=== PATIENT | male | born 1965 | race Caucasian/White ===

== ENCOUNTER 2018-02-19 14:55 | Inpatient (IN) | payer OTHER ==
[~2018-02-19] VITALS: Ht 193 cm; Wt 105.2 kg
[~2018-02-19 14:55] MED LIST: Z.0.AMARYL2 MG PO; Z.0.ASPIRIN CHEW81 M PO; Z.0.PLAVIX75 MG PO; Z.0.PRINIVIL5 MG PO; Z.0.TOPROL XL50 MG PO; Z.3.HYDROCODON-ACE1 PO
--- OUTSIDE RECORDS SUMMARY | 2018-02-19 14:58 | XMS REPORT | Clinical Summary ---
Author Author [facility] Organization [facility] Address Unknown Phone Unavailable Care Team Providers Care Small Products I Assembler Name Role Phone Lesli Gary MD PCP Allergies Comments Active Allergy Reactions Severity Noted Date Morphine 04/18/2016 Medications End Date Status Medication Sig Dispensed Refills Start Date Active ezetimibe (ZETIA) 10 mg 0 tablet 7 Active clopidogrel (PLAVIX) 75 0 mg tablet 7 Active FARXIGA 5 mg tablet Take 5 mg by 1 mouth once 6 daily. Active glimepiride (AMARYL) 4 MG TAKE 1 TABLET 0 tablet BY MOUTH IN 6 THE MORNING AND 1/2 TABLET BY MOUTH IN THE EVENING Active HYDROcodone-acetaminophen Take 1 tablet 0 (NORCO) 7.5-325 mg per by mouth 6 tablet every 8 (eight) hours as needed. Active lisinopril Take 5 mg by 1 (PRINIVIL,ZESTRIL) 5 mg mouth once 6 tablet daily. Active metFORMIN (GLUCOPHAGE) Take 850 mg 1 850 mg tablet by mouth 3 6 (three) times a day. Active metoprolol tartrate Take 50 mg by 1 (LOPRESSOR) 50 mg tablet mouth once 6 daily. Active LYRICA 75 mg capsule Take 75 mg by 0 mouth 3 6 (three) times a day. Active rOPINIRole (REQUIP) 2 MG Take 2 mg by 0 tablet mouth 6 nightly. Active JANUVIA 100 mg tablet Take 100 mg 1 by mouth once 6 daily. Active CHANTIX CONTINUING MONTH TAKE 0 BOX 1 mg tablet DIRECTED PER 6 PACKAGE INSTRUCTIONS. Active pravastatin (PRAVACHOL) 0 40 MG tablet 7 Active metoprolol succinate XL Take 50 mg by 0 (TOPROL-XL) 50 mg 24 hr mouth once 7 tablet daily. Active Problems Problem Noted Date Infected superficial foreign body of right leg 11/27/2016 Overview: Added automatically from request for surgery [id number] Social History Date Tobacco Use Types Packs/Day Years Used Former Smoker Alcohol Use Drinks/Week oz/Week Comments Yes occ Sex Assigned at Date Recorded Not on file Industry Job Start Date Occupation Not on file Not on file Not on file Travel End Travel History Travel Start No recent travel history available. Last Filed Vital Signs Not on file Plan of Treatment Health Maintenance Due Date Last Done Comments MMR VACCINES (1 of - 1966 Standard series) VARICELLA VACCINES (1 of 1978 2 - 2-dose adolescent series) COLON CANCER SCREENING 2015 SHINGRIX VACCINE (1 of 2) 2015 INFLUENZA VACCINE 10/23/2017 HEPATITIS B VACCINES Aged Out No longer eligible based on patient's age to complete this topic IPV VACCINES Aged Out No longer eligible based on patient's age to complete this topic MENINGOCOCCAL VACCINE Aged Out No longer eligible based on patient's age to complete this topic Results Not on fileafter 02/18/2017 Insurance Payer Benefit Subscriber ID Type Phone Address Plan / Group AETNA AETNA PPO xxxxxxxxxx PPO OPEN CHOICE Advance Directives Patient has advance care planning documents on file. For more information, lydia sanchez contact: Derik Serrano [address] [place] [address]
[2018-02-19] MEDS ORDERED: FENTANYL CITRATE/PF 100MCG/2 ML INJ IV ONE ×3 (15:15→19:30)
--- NOTE | 2018-02-19 16:01 | Diagnostic Imaging Report ---
Foot complete CPT code: 62369 Indication: Wound to bottom of foot Technique: A.P., oblique and lateral views of the right foot obtained. Comparison: None Findings: The foot has been amputated at the level of the metatarsals. There is air at the plantar surface of the foot at the osteotomy site. There is demineralization of the remaining aspects of the fourth and fifth metatarsals. Midfoot appears intact without focal osseous lesion. Calcaneus is intact with a small posterior spur. Visualized portions of the tibia are intact. There is hypertrophy of the medial malleolus, possibly due to remote injury or altered biomechanics. The distal fibula is intact. IMPRESSION: The mineralization of the proximal fourth and fifth metatarsals at the osteotomy site. This is concerning for osteomyelitis. Bone scan and MRI are more sensitive modalities to detect osteomyelitis. Signed by: Dr. Iris Reese MD on 02/19/2018 3:58 PM
[2018-02-19 16:15] LABS: BASOPHILS # (AUTO) 0.1 (0.0-0.1); BASOPHILS % 0.4 % (0.0-1.0); EOSINOPHILS # (AUTO) 0.3 (0.0-0.4); EOSINOPHILS % 2.3 % (0.0-6.0); HEMATOCRIT 41.6 % (38.2-49.6); HEMOGLOBIN 13.7 g/dL (14.0-18.0); LYMPHOCYTES # (AUTO) 2.3 (1.0-3.2); LYMPHOCYTES % 20.3 % (18.0-39.1); MEAN CORPUSCULAR HEMOGLOBIN 28.6 pg (28-32); MEAN CORPUSCULAR HGB CONC 32.9 g/dL (31-35); MEAN CORPUSCULAR VOLUME 86.8 fL (81-99); MONOCYTES # (AUTO) 0.8 (0.2-0.8); MONOCYTES % 6.6 % (4.4-11.3); PLATELET COUNT 363 x10e3/uL (140-360); RED BLOOD COUNT 4.79 x10e6/uL (4.3-5.7); RED CELL DISTRIBUTION WIDTH 14.1 % (11.7-14.4)
[2018-02-19 16:24] LABS: INR 0.84; PROTHROMBIN TIME 12.3 seconds (11.9-14.5)
[2018-02-19 16:25] LABS: PARTIAL THROMBOPLASTIN TIME 31.9 seconds (23.8-35.5)
[2018-02-19 16:36] LABS: ALANINE AMINOTRANSFERASE 24 IU/L (0-55); ALBUMIN 3.2 g/dL (3.5-5.0); ALBUMIN/GLOBULIN RATIO 0.7 (0.8-2.0); ALKALINE PHOSPHATASE 111 IU/L (40-150); ANION GAP 12.9 mmol/L (8-16); BLOOD UREA NITROGEN 6 mg/dL (7-26); BUN/CREATININE RATIO 6 (6-25); CARBON DIOXIDE 27 mmol/L (22-29); CHLORIDE 99 mmol/L (98-107); CREATININE, SERUM 1.08 mg/dL (0.72-1.25); EST GLOMERULAR FILTRATION RATE > 60 ML/MIN (60-); GLUCOSE 253 mg/dL (74-118); MAGNESIUM 1.8 MG/DL (1.3-2.1); POTASSIUM 3.9 mmol/L (3.5-5.1); SODIUM 135 mmol/L (136-145)
[2018-02-19] MEDS ORDERED: FENTANYL CITRATE/PF 100MCG/2 ML INJ ONE (18:40)
--- OUTSIDE RECORDS SUMMARY | 2018-02-19 19:45 | XMS REPORT | Clinical Summary ---
Author Author [facility] Organization [facility] Address Unknown Phone Unavailable Care Team Providers Care Metal Sprayer Protective Coating Name Role Phone Lesli Gary MD PCP [...] Overview: Added automatically from request for surgery [id number] Social History Date Tobacco Use Types Packs/Day [...] more information, lydia sanchez contact: Derik Serrano [address] [place] [address]
--- OUTSIDE RECORDS SUMMARY | 2018-02-19 19:45 | XMS REPORT ---
[facility] Address Unknown Phone Unavailable Care Team Providers Care Plan Nurse Name Role Phone Mike SANCHEZ Unavailable Unavailable Problems This patient has no known problems. Allergies, Adverse Reactions, Alerts This patient has no known allergies or adverse reactions. Medications This patient has no known medications. Results Test Description Test Time Test Comments Text Results Atomic Results Result Comments FOOT RIGHT COMPLETE 2018-02-19 15:55:00 [facility] [address] [address] Patient Name: TONO HOBBS MR #: [id number] : 1965 Age/Sex: 53/M Req #: [id number] [facility] Physician: Ordered by: FAITH PANDYA IVORY CARVER Report #: [id number] Location: ER Room/Bed: Procedure: [id number] DX/FOOT RIGHT COMPLETE Exam Date: 02/19/18 Exam Time: 1540 REPORT STATUS: Signed Foot complete CPT code: 93429 Indication: Wou nd to bottom of foot Technique: A.P., oblique and lateral views of the right foot obtained. Comparison: None Findings: The foot has been amputated at the level of the metatarsals. There is air at the plantar surface of the foot at the osteotomy site. There is demineralization of the remaining aspects of the fourth and fifth metatarsals. Midfoot appears intact without focal osseous lesion. Calcaneus is intact with a small posterior spur. Visualized portions of the tibia are intact. There is hypertrophy of the medial malleolus, possibly due to remote injury or altered biomechanics. The distal fibula is intact. IMPRESSION: The mineralization of the proximal fourth and fifth metatarsals at the osteotomy site. This is concerning for osteomyelitis. Bone scan and MRI are more sensitive modalities to detect osteomyelitis. Signed by: Dr. Elias Reese MD on 02/19/2018 3:58 PM Dictated By: ELIAS REESE MD [id number] Transcribed By: CARINA on 02/19/18 7111 COPY TO: FAITH PANDYA NP
[2018-02-19] MEDS ORDERED: ROPINIROLE HCL2 MG PO (20:20)
[2018-02-19] MEDS ORDERED: METFORMIN HCL850 MG PO (20:20)
[2018-02-19] MEDS ORDERED: GABAPENTIN300 MG PO (20:20)
[2018-02-19] MEDS ORDERED: GLIMEPIRIDE2 MG PO (20:20)
[2018-02-19] MEDS ORDERED: PRAVASTATIN SOD40 MG PO (20:20)
[2018-02-19] MEDS: VANCOMYCIN 1GM/NS 250 ML 250 ML IV SCH (21:18)
[2018-02-19] MEDS ORDERED: DEXTROSE 50% SYRINGE 50 ML IV PRN (21:30)
[2018-02-19] MEDS ORDERED: IBUPROFEN 600 MG TAB PO PRN (23:15)
[2018-02-19] MEDS ORDERED: FENTANYL CITRATE/PF 100MCG/2 ML INJ IV PRN (23:15)
[2018-02-20] VITALS (8 sets, daily range): BP systolic 108–143; BP diastolic 60–79
[2018-02-20] MEDS ORDERED: HYDROMORPHONE 2MG/ML 2 MG/ML ML IV PRN ×2 (00:45→07:45)
[2018-02-20] MEDS ORDERED: HYDROMORPHONE 1MG/1ML INJ IV PRN (07:15)
[2018-02-20] MEDS ORDERED: ACETAMINOPHEN 325 MG TAB PO PRN (07:15)
[2018-02-20] MEDS ORDERED: HYDRALAZINE HCL 20 MG/ML VIAL IV PRN (07:15)
[2018-02-20] MEDS ORDERED: DEXTROSE 50% SYRINGE 50 ML IV PRN (07:15)
[2018-02-20] MEDS ORDERED: ONDANSETRON HCL INJ 2 MG/ML VIAL IV PRN (07:15)
[2018-02-20] MEDS ORDERED: INSULIN REGULAR, HUMAN 100 UNIT/1 ML 3ML VIAL SQ SCH (07:30)
[2018-02-20] MEDS: FAMOTIDINE 20 MG TAB PO SCH ×2 (08:30→16:00)
[2018-02-20] MEDS: LISINOPRIL 2.5 MG TAB PO SCH (08:30)
[2018-02-20] MEDS: METOPROLOL SUCCINATE 50 MG TAB XL PO SCH (08:30)
[2018-02-20] MEDS: CLOPIDOGREL BISULFATE 75 MG TAB PO SCH (08:30)
[2018-02-20] MEDS: GABAPENTIN 300 MG CAP PO SCH ×3 (08:30→22:05)
[2018-02-20] MEDS: PIPER-TAZ 3.375 GM 50 ML IV SCH ×3 (08:50→23:00)
[2018-02-20] MEDS: INSULIN LISPRO 100 UNIT/1 ML 3ML VIAL SQ SCH ×4 (08:50→21:00)
[2018-02-20] MEDS ORDERED: NON-FORMULARY MEDICATION (Pravastatin Sodium 40 MG) PO SCH (09:00)
[2018-02-20] MEDS ORDERED: VANCOMYCIN 1GM/NS 250 ML 250 ML IV SCH (09:00)
[2018-02-20] MEDS ORDERED: LISINOPRIL 5 MG PO SCH (09:00)
[2018-02-20] MEDS ORDERED: SODIUM CHLORIDE 0.9% 250ML 250 ML ONE (09:13)
[2018-02-20] MEDS: VANCOMYCIN 1GM/NS 250 ML 250 ML IV SCH ×2 (10:02→22:05)
[2018-02-20] MEDS: HYDROCODONE/APAP 5MG-325MG TAB PO PRN (11:50)
--- NOTE | 2018-02-20 12:48 | Consultation ---
DATE OF CONSULTATION: February 20, 2018 REASON FOR CONSULTATION: Right foot wound cellulitis. HISTORY OF PRESENT ILLNESS: This is a 53-year-old male with past medical history of type-2 diabetes with peripheral neuropathy and high blood pressure, who was admitted yesterday for worsening infection to his right foot. Per the patient, he has a history of a partial 1st ray amputation in 2011 followed by transmetatarsal amputation and revisional transmetatarsal amputation in 2013, which was performed by a different physician at [facility]. The patient also relates to having a stenting procedure done in 2011 followed by another stenting procedure done in [place], which was approximately 2 years ago, to his right lower extremity. The patient relates that he was being seen by a corrections lieutenant in [place] where periodic debridements and wound grafts were being performed. The patient then relates he lost insurance over the past year before it was reobtained. He relates an ulcer formed on the plantar aspect of his right foot stump site approximately 3 months ago, but he has not been to a physician to treat it. He has been trying to change the bandages at home with Betadine dressing changes. He has not been taking any antibiotics. Currently he denies nausea, vomiting, fever, chills, chest pain or shortness of breath. PAST MEDICAL HISTORY 1. Type-2 diabetes. 2. Peripheral neuropathy. 3. Hypertension. MEDICATIONS: Per the chart. ALLERGIES: MORPHINE. SURGICAL HISTORY: As mentioned above, partial 1st ray amputation in 2011, transmetatarsal amputation in 2013, multiple stenting procedures to the right lower extremity in 2011 and again in 2015. SOCIAL HISTORY: Patient denies drinking or illicit drug use. Has a history of smoking. REVIEW OF SYSTEMS: The patient currently denies nausea, vomiting, fever, chills, chest pain or shortness of breath. PHYSICAL EXAMINATION GENERAL: Alert and oriented times 3, in no apparent distress. VITAL SIGNS: Today, temperature 97.1, heart rate 56, respiratory rate 19, blood pressure 111/68, pulse ox 98% on room air. PROBLEM-FOCUSED LOWER EXTREMITY PHYSICAL EXAMINATION VASCULAR: Dorsalis pedis pulse is faintly palpable. Posterior tibial pulse is nonpalpable. Capillary refill time is 4 to 5 seconds to the stump site. Periwound erythema, edema and warmth are noted to the level of the ankle joint. NEUROLOGIC: Sensation is absent to light touch bilaterally. MUSCULOSKELETAL: Right transmetatarsal amputation. Left 4th digit amputation. DERMATOLOGICAL: A large chronic ulceration is noted to the plantar aspect of the patient's right foot, which is approximately 5 cm x 6 cm. The wound edges are macerated with severe hyperkeratosis noted to the periwound and to the distal amputation site. Mild serous drainage is present. The wound does probe to deep tissue. LABS: White blood cell count is 11.4, hemoglobin 13.7, hematocrit 41.6, platelet count 363. Sodium 135, potassium 3.9, chloride 99, CO2 27, BUN 6, creatinine 1.08, glucose 235. IMAGING: Demineralization of the proximal 4th and 5th metatarsal stumps concerning for osteomyelitis. MRI is recommended. ASSESSMENT 1. Type-2 diabetes and peripheral neuropathy. 2. Right foot ulcer and cellulitis, status post transmetatarsal amputation. PLAN: The patient was seen and evaluated. Discussed condition, x-rays and treatment options with the patient in detail. The patient has a long history of multiple amputations to the right foot performed by different physicians at different facilities over the last 6 years. At this time, the patient has a wound that has been present for over 3 months with no medical treatment. The suspicion for osteomyelitis is high. Will recommend MRI for further evaluation of the osteomyelitis and the extent of it. Since the patient has had multiple stenting procedures to the right lower extremity, will also order arterial Dopplers to evaluate circulation. I discussed with the patient that if osteomyelitis is present options would include IV antibiotics, wound care, and possible revisional angioplasty versus a below-knee amputation. The patient understands. The wound was redressed with Betadine wet to dry with 4 x 4's, Kerlix and tape. The podiatry service will continue to monitor as an inpatient. CARSON VANN DPM Job#: [id number]
--- NOTE | 2018-02-20 13:30 | Diagnostic Imaging Report ---
MRI of the right forefoot without contrast. History: Osteomyelitis. Sore on the lateral foot. Redness and swelling. Decreased range of motion. Cellulitis. Technique: Multiplanar multisequence MRI of the foot without contrast Comparison: Radiographs 02/19/2018 Findings: There is abnormal bone marrow replacement with bone marrow edema and cortical destruction involving the remainder of the second through fifth metatarsal bones. This is worrisome for osteomyelitis. The remainder of the first metatarsal bone is relatively preserved. Additionally, there is abnormal bone marrow edema with marrow replacement involving the cuneiform bones, navicular bone, cuboid bone and anterior calcaneus. This may be stress related. There is skin thickening/ulceration and abnormal soft tissue edema with air foci at the distal soft tissue stump. No well-formed drainable fluid collection/abscess is seen. There is a small tibiotalar joint effusion. Impression: Findings worrisome for osteomyelitis involving the remainder of the second through fifth metatarsal bones. Abnormal bone marrow edema and marrow replacement involving the cuneiform bones, navicular bone, cuboid bone and anterior calcaneus may be stress related. Findings consistent with cellulitis, skin ulceration and air foci at the distal soft tissue stump. No well-formed drainable fluid collection is seen. Signed by: Dr. Dany Taylor M.D. on 02/20/2018 1:27 PM
--- NOTE | 2018-02-20 15:55 | Consultation ---
DATE OF CONSULTATION: February 20, 2018 REASON FOR CONSULTATION: Nonhealing foot ulcer. This patient is known to me from previous. I took care of him about 9 months ago. He had osteomyelitis. He is presenting with right foot wound, which he had for a couple of months. Not getting any better with drainage. The patient had transmetatarsal amputation. He does have an underlying history of diabetes mellitus and severe neuropathy. He also has high blood pressure. The patient comes in with drainage from his foot. He does see Dr. Singh as an outpatient. The patient is being admitted. Infectious disease was consulted. He is currently lying in bed complaining of pain in his feet. PAST MEDICAL HISTORY: Diabetes mellitus, neuropathy, hypertension. PAST SURGICAL HISTORY: TMA on the right, partial 1st ray amputation in 2011, transmetatarsal amputation in 2013, multiple stenting procedures in the right lower extremity in 2011 and 2015. SOCIAL HISTORY: There is no smoking, drug abuse or alcohol abuse. FAMILY HISTORY: He has a history of smoking but he quit. REVIEW OF SYSTEMS HEENT: There is no headache, visual change, hearing changes. GI: There is no nausea. No vomiting. No diarrhea. CARDIAC: There is no arrhythmia. NEURO: No seizure activity. All other symptoms are limited except for the pain. LABS: White count is 11.49, hemoglobin 13.7. Sodium 135, potassium 3.9, creatinine 1.08. An MRI of the foot was done, which showed concerning for osteomyelitis of the 2nd through the 5th metatarsal bone. PHYSICAL EXAMINATION GENERAL: He is currently alert and oriented. Does not seem to be in acute distress. VITALS: Stable. Currently afebrile. HEENT: Normocephalic. Not icteric. NECK: Supple. CHEST: Clear. HEART: S1 and S2. ABDOMEN: Soft. Bowel sounds present. No tenderness. EXTREMITIES: No edema. He does have an open wound and ulcer. The patient had an open wound and ulcer on the distal aspect of his stump. IMPRESSION 1. Osteomyelitis of his right foot in a patient with diabetes mellitus, neuropathy, peripheral vascular disease, status post stent. Agree with vancomycin. Will get a PICC line. Will get a sed rate and C-reactive protein. Will discuss with podiatry. 2. Neuropathy. 3. Diabetes mellitus. 4. Hypertension. Will follow with you. Job#: [id number] RI
[2018-02-20] MEDS ORDERED: PRAVASTATIN 20 MG TAB PO SCH (21:00)
[2018-02-20] MEDS: ROPINIROLE HCL 2 MG TAB PO SCH (22:05)
[2018-02-20] MEDS: HYDROMORPHONE 2MG/ML 2 MG/ML ML IV PRN (22:06)
[2018-02-21] VITALS (7 sets, daily range): BP systolic 115–132; BP diastolic 68–77
[2018-02-21] MEDS: HYDROCODONE/APAP 5MG-325MG TAB PO PRN ×3 (00:25→16:20)
[2018-02-21] MEDS: HYDROMORPHONE 2MG/ML 2 MG/ML ML IV PRN ×6 (02:05→22:10)
[2018-02-21 04:26] LABS: BASOPHILS # (AUTO) 0.1 (0.0-0.1); BASOPHILS % 0.6 % (0.0-1.0); EOSINOPHILS # (AUTO) 0.4 (0.0-0.4); EOSINOPHILS % 4.7 % (0.0-6.0); HEMATOCRIT 37.8 % (38.2-49.6); HEMOGLOBIN 12.3 g/dL (14.0-18.0); LYMPHOCYTES # (AUTO) 1.8 (1.0-3.2); LYMPHOCYTES % 21.5 % (18.0-39.1); MEAN CORPUSCULAR HEMOGLOBIN 28.5 pg (28-32); MEAN CORPUSCULAR HGB CONC 32.5 g/dL (31-35); MEAN CORPUSCULAR VOLUME 87.7 fL (81-99); MONOCYTES # (AUTO) 0.9 (0.2-0.8); MONOCYTES % 10.5 % (4.4-11.3); NEUTROPHILS # (AUTO) 5.1 (2.1-6.9); NEUTROPHILS % 62.3 % (38.7-80.0); PLATELET COUNT 250 x10e3/uL (140-360); RED BLOOD COUNT 4.31 x10e6/uL (4.3-5.7); RED CELL DISTRIBUTION WIDTH 14.1 % (11.7-14.4)
[2018-02-21 04:45] LABS: ANION GAP 12.4 mmol/L (8-16); BLOOD UREA NITROGEN 11 mg/dL (7-26); BUN/CREATININE RATIO 11 (6-25); CALCIUM 9.1 mg/dL (8.4-10.2); CARBON DIOXIDE 26 mmol/L (22-29); CHLORIDE 104 mmol/L (98-107); EST GLOMERULAR FILTRATION RATE > 60 ML/MIN (60-); GLUCOSE 236 mg/dL (74-118); MAGNESIUM 2.2 MG/DL (1.3-2.1); POTASSIUM 4.4 mmol/L (3.5-5.1); SODIUM 138 mmol/L (136-145)
[2018-02-21] MEDS: PIPER-TAZ 3.375 GM 50 ML IV SCH ×3 (06:15→22:40)
[2018-02-21] MEDS: INSULIN LISPRO 100 UNIT/1 ML 3ML VIAL SQ SCH ×4 (07:30→21:00)
[2018-02-21] MEDS: VANCOMYCIN 1GM/NS 250 ML 250 ML IV SCH ×2 (08:46→21:10)
[2018-02-21] MEDS: METOPROLOL SUCCINATE 50 MG TAB XL PO SCH (08:46)
[2018-02-21] MEDS: LISINOPRIL 2.5 MG TAB PO SCH (08:46)
[2018-02-21] MEDS: FAMOTIDINE 20 MG TAB PO SCH ×2 (08:46→16:39)
[2018-02-21] MEDS: GABAPENTIN 300 MG CAP PO SCH ×3 (08:46→21:10)
[2018-02-21] MEDS: CLOPIDOGREL BISULFATE 75 MG TAB PO SCH (08:47)
--- NOTE | 2018-02-21 09:19 | Operative Report ---
Documentation in error Job#: [id number] MONICA DOE
--- NOTE | 2018-02-21 09:50 | Progress Note ---
DATE: February 21, 2018 SUBJECTIVE: This is a 53-year-old male with a past medical history of type 2 diabetes, peripheral neuropathy and hypertension, who was admitted 2 days ago for worsening infection in his right foot. No acute issues overnight. Patient currently relates to moderate pain to the patient's right foot. Denies nausea, vomiting, fever, chills, chest pain, or shortness of breath. OBJECTIVE VITAL SIGNS: Today, temperature 97, heart rate 59, respiratory rate 19, blood pressure 132/77, pulse ox is 96% on room air. LOWER EXTREMITY PHYSICAL EXAMINATION VASCULAR: Dorsalis pedis is faintly palpable. Posterior pulses are nonpalpable. Capillary refill time is 4-5 seconds to the distal stump site. There is periwound erythema, edema which is improved since yesterday. Erythema extending just to the periphery of the ulceration. NEUROLOGICAL: Sensation is absent to light touch bilateral. MUSCULOSKELETAL: Right transmetatarsal amputation, left 4th digit amputation. DERMATOLOGICAL: Chronic ulceration to the plantar aspect of the patient's right foot approximately 5 x 6 cm. Wound edges are macerated with hyperkeratotic tissue noted to the distal amputation site. The wound is slightly macerated with serous drainage. Periwound erythema has improved since yesterday. LABS: White blood cell count is 8.13, hemoglobin 12.3, hematocrit 37.8, and platelet count is 250,000. Sodium 130, potassium 4.4, chloride 104, CO2 26, BUN 11, creatinine 1, glucose 236. Hemoglobin A1c is 6.9. IMAGING: MRI of right foot findings worrisome for osteomyelitis involving the remainder of the 2nd through 5th metatarsal bones. Abnormal marrow edema with marrow replacement involving cuneiform bones, navicular cuboid and anterior calcaneus. Findings consistent with cellulitis and ulceration distal to the tissue stump site. No well-formed abscess is present. Arterial Dopplers are pending. ASSESSMENT 1. Type 2 diabetes with peripheral neuropathy. 2. Right foot ulceration with cellulitis. 3. Osteomyelitis, right foot. PLAN: The patient was seen and evaluated. Explained his condition, MRI and treatment options with the patient in detail. I discussed with the patient that the patient likely has osteomyelitis in the remaining stump of the metatarsals 2-5, and possible osteomyelitis in the bone proximal to that, including the cuneiform navicular, and cuboid. I discussed with the patient that further amputation of his foot would leave him with a nonambulatory leg, and there would be no flap for closure due to the large ulceration. Discussed with the patient at this time his option would include a below knee amputation versus again long-term wound care with IV antibiotics, periodic debridements and possible skin grafting. Patient relates that he has been through IV antibiotics and skin grafting over the last several years, and would like to think about an amputation versus continued wound care. The podiatry service will continue to monitor as an inpatient. Job#: [id number] MONICA
--- NOTE | 2018-02-21 15:49 | Consultation ---
DATE OF CONSULTATION: CARDIOLOGY CONSULTATION REASON FOR CONSULTATION: Peripheral arterial disease. HISTORY OF PRESENT ILLNESS: This is a 53-year-old man with a past history of diabetes mellitus, neuropathy, hypertension, severe peripheral arterial disease status post lower extremity bypass and possible peripheral intervention subsequent to this in [place]. The patient was admitted to our facility with osteomyelitis. He underwent wound care. MRI found significant findings for osteomyelitis. Options are being discussed for possible below-knee amputation versus long-term wound care and IV antibiotics. We have been asked to evaluate the patient for his vascular status. Arterial ultrasound has been ordered, and we will review this once this has been resulted. He, otherwise, is feeling well. He denies any chest pain, shortness of breath, palpitations or near syncope. REVIEW OF SYSTEMS: A 12-point review of systems was conducted and was negative other than that mentioned above in the HPI. PAST MEDICAL HISTORY: Hypertension, diabetes mellitus, hyperlipidemia, peripheral arterial disease status post bypass. PAST SURGICAL HISTORY: Multiple orthopedic and podiatry procedures, peripheral interventions, peripheral bypass. FAMILY HISTORY: No premature coronary artery disease or sudden cardiac . SOCIAL HISTORY: Prior tobacco use. No current illicit drug use or tobacco use. ALLERGIES: MORPHINE. MEDICATIONS: See medication reconciliation form. PHYSICAL EXAMINATION VITAL SIGNS: Temperature 96.5, heart rate 58, respirations 19, blood pressure 126/74, oxygen saturation 97% on room air. GENERAL: Well-appearing, in no apparent distress. LUNGS: Clear to auscultation. ABDOMEN: Soft, nontender and nondistended. CARDIOVASCULAR: Regular rate and rhythm. EXTREMITIES: Venous stasis changes noted over bilateral lower extremities. Right foot wound, which is dressed. MRI shows findings worrisome for osteomyelitis involving the 2nd through 5th metatarsal bones. IMPRESSION 1. Peripheral arterial disease status post multiple interventions and peripheral bypass surgery. 2. Diabetes mellitus. 3. Hyperlipidemia. 4. Hypertension. 5. Osteomyelitis. RECOMMENDATIONS: Arterial Doppler has been ordered, and we will review this once it has been resulted. May consider CT angiography given his prior history of bypass to evaluate the graft itself if arterial Doppler is inadequate. The patient may require peripheral intervention, and we will continue to follow. Otherwise, continue current medication regimen consisting of Plavix and statins. Job#: [id number]
[2018-02-21] MEDS: SIMVASTATIN 20 MG TAB PO SCH (21:10)
[2018-02-21] MEDS: ROPINIROLE HCL 2 MG TAB PO SCH (21:10)
[2018-02-22] MEDS: HYDROMORPHONE 2MG/ML 2 MG/ML ML IV PRN ×6 (02:16→22:20)
[2018-02-22 04:00] VITALS: BP 129/68
[2018-02-22 04:09] LABS: BASOPHILS # (AUTO) 0.1 (0.0-0.1); BASOPHILS % 0.6 % (0.0-1.0); EOSINOPHILS # (AUTO) 0.4 (0.0-0.4); EOSINOPHILS % 3.6 % (0.0-6.0); HEMOGLOBIN 13.5 g/dL (14.0-18.0); LYMPHOCYTES # (AUTO) 1.9 (1.0-3.2); LYMPHOCYTES % 19.5 % (18.0-39.1); MEAN CORPUSCULAR HEMOGLOBIN 28.7 pg (28-32); MEAN CORPUSCULAR HGB CONC 32.9 g/dL (31-35); MONOCYTES # (AUTO) 0.8 (0.2-0.8); MONOCYTES % 7.7 % (4.4-11.3); NEUTROPHILS # (AUTO) 6.6 (2.1-6.9); NEUTROPHILS % 68.1 % (38.7-80.0); PLATELET COUNT 256 x10e3/uL (140-360); RED BLOOD COUNT 4.71 x10e6/uL (4.3-5.7)
[2018-02-22 04:33] LABS: ANION GAP 12.4 mmol/L (8-16); BLOOD UREA NITROGEN 13 mg/dL (7-26); BUN/CREATININE RATIO 13 (6-25); CALCIUM 9.6 mg/dL (8.4-10.2); CARBON DIOXIDE 26 mmol/L (22-29); CHLORIDE 104 mmol/L (98-107); CREATININE, SERUM 1.03 mg/dL (0.72-1.25); EST GLOMERULAR FILTRATION RATE > 60 ML/MIN (60-); GLUCOSE 196 mg/dL (74-118); MAGNESIUM 2.3 MG/DL (1.3-2.1); POTASSIUM 4.4 mmol/L (3.5-5.1); SODIUM 138 mmol/L (136-145)
[2018-02-22] MEDS: PIPER-TAZ 3.375 GM 50 ML IV SCH ×3 (06:19→22:19)
[2018-02-22 07:15] VITALS: BP 144/83
[2018-02-22] MEDS: INSULIN LISPRO 100 UNIT/1 ML 3ML VIAL SQ SCH ×4 (07:30→21:27)
[2018-02-22 07:43] VITALS: BP 144/83
[2018-02-22] MEDS: FAMOTIDINE 20 MG TAB PO SCH ×2 (09:05→16:20)
[2018-02-22] MEDS: MULTIVITAMINS/MINERALS TAB PO SCH (09:05)
[2018-02-22] MEDS: GABAPENTIN 300 MG CAP PO SCH ×3 (09:05→21:27)
[2018-02-22] MEDS: VANCOMYCIN 1GM/NS 250 ML 250 ML IV SCH (09:05)
[2018-02-22] MEDS: LISINOPRIL 2.5 MG TAB PO SCH (09:06)
[2018-02-22] MEDS: CLOPIDOGREL BISULFATE 75 MG TAB PO SCH (09:06)
[2018-02-22] MEDS: METOPROLOL SUCCINATE 50 MG TAB XL PO SCH (09:06)
[2018-02-22] MEDS: ZINC SULFATE 220 MG CAP PO SCH (09:09)
[2018-02-22] MEDS: ASCORBIC ACID 500 MG TAB PO SCH ×2 (09:09→16:20)
[2018-02-22] MEDS: OYST-CAL-D 500MG TABLET PO SCH ×2 (09:09→16:20)
[2018-02-22 11:48] VITALS: BP 112/87
[2018-02-22 16:06] VITALS: BP 119/78
[2018-02-22] MEDS: CEFAZOLIN SOD 1 GM/D5W 50ML 50 ML IV SCH ×2 (16:20→21:27)
[2018-02-22] MEDS: HYDROCODONE/APAP 5MG-325MG TAB PO PRN (16:40)
--- NOTE | 2018-02-22 17:49 | Progress Note ---
DATE: CARDIOLOGY PROGRESS NOTE SUBJECTIVE: Patient reports right lower extremity resting pain. OBJECTIVE VITAL SIGNS: Temperature is 98, heart rate 64, respiratory rate is 18, blood pressure is 119/78, oxygen saturation 99% on room air. GENERAL: He is well-appearing, well-built, in no apparent distress. CARDIOVASCULAR: Regular rate and rhythm. LUNGS: Clear to auscultation. ABDOMEN: Soft, nontender. EXTREMITIES: Right lower extremity wound dressed. LABORATORY DATA: Reviewed, showed hemoglobin of 13.5, creatinine of 1.03. Arterial Doppler showed evidence of a total occlusion of the right femoral artery stent with a patent right femoral-popliteal bypass with subsequently monophasic waveforms in the right posterior tibial, anterior tibial, and dorsalis pedis arteries signifying reduced arterial flow. In addition, patient has elevated velocities in the left femoral artery suggestive of greater than 75% focal stenosis. IMPRESSION 1. Peripheral arterial disease, status post prior femoral-popliteal bypass. 2. Right lower extremity wounds with osteomyelitis. 3. Diabetes mellitus. 4. Hyperlipidemia. 5. Hypertension. RECOMMENDATIONS: We will need to discuss with podiatry about plans of care. Patient likely will need conventional angiography and possible intervention to allow for local wound healing. Otherwise, continue all current cardiovascular medications. Job#: [id number] KYLAH
[2018-02-22 20:00] VITALS: BP 129/68
[2018-02-22] MEDS: ROPINIROLE HCL 2 MG TAB PO SCH (21:27)
[2018-02-22] MEDS: SIMVASTATIN 20 MG TAB PO SCH (21:27)
[2018-02-23] VITALS (8 sets, daily range): BP systolic 105–136; BP diastolic 57–76
[2018-02-23] MEDS: HYDROMORPHONE 2MG/ML 2 MG/ML ML IV PRN ×6 (02:12→22:21)
[2018-02-23] MEDS: HYDROCODONE/APAP 5MG-325MG TAB PO PRN (04:28)
[2018-02-23 05:21] LABS: BASOPHILS # (AUTO) 0.1 (0.0-0.1); BASOPHILS % 0.6 % (0.0-1.0); EOSINOPHILS # (AUTO) 0.4 (0.0-0.4); EOSINOPHILS % 4.2 % (0.0-6.0); HEMATOCRIT 43.7 % (38.2-49.6); HEMOGLOBIN 14.2 g/dL (14.0-18.0); LYMPHOCYTES % 22.4 % (18.0-39.1); MEAN CORPUSCULAR HEMOGLOBIN 28.6 pg (28-32); MEAN CORPUSCULAR HGB CONC 32.5 g/dL (31-35); MEAN CORPUSCULAR VOLUME 87.9 fL (81-99); MONOCYTES # (AUTO) 0.8 (0.2-0.8); MONOCYTES % 8.8 % (4.4-11.3); NEUTROPHILS # (AUTO) 5.6 (2.1-6.9); NEUTROPHILS % 63.5 % (38.7-80.0); PLATELET COUNT 295 x10e3/uL (140-360); RED BLOOD COUNT 4.97 x10e6/uL (4.3-5.7); RED CELL DISTRIBUTION WIDTH 14.1 % (11.7-14.4)
[2018-02-23] MEDS: CEFAZOLIN SOD 1 GM/D5W 50ML 50 ML IV SCH ×3 (05:29→22:21)
[2018-02-23 06:01] LABS: ANION GAP 14.3 mmol/L (8-16); BLOOD UREA NITROGEN 12 mg/dL (7-26); BUN/CREATININE RATIO 12 (6-25); CALCIUM 9.9 mg/dL (8.4-10.2); CARBON DIOXIDE 28 mmol/L (22-29); CHLORIDE 103 mmol/L (98-107); CREATININE, SERUM 1.03 mg/dL (0.72-1.25); EST GLOMERULAR FILTRATION RATE > 60 ML/MIN (60-); GLUCOSE 198 mg/dL (74-118); POTASSIUM 4.3 mmol/L (3.5-5.1); SODIUM 141 mmol/L (136-145)
[2018-02-23] MEDS: PIPER-TAZ 3.375 GM 50 ML IV SCH ×3 (06:14→21:38)
[2018-02-23 06:42] LABS: MAGNESIUM 2.4 MG/DL (1.3-2.1)
[2018-02-23] MEDS: INSULIN LISPRO 100 UNIT/1 ML 3ML VIAL SQ SCH ×4 (07:30→21:36)
[2018-02-23] MEDS: GABAPENTIN 300 MG CAP PO SCH ×3 (08:35→21:38)
[2018-02-23] MEDS: MULTIVITAMINS/MINERALS TAB PO SCH (08:35)
[2018-02-23] MEDS: OYST-CAL-D 500MG TABLET PO SCH ×2 (08:35→17:30)
[2018-02-23] MEDS: FAMOTIDINE 20 MG TAB PO SCH ×2 (08:35→17:30)
[2018-02-23] MEDS: ASCORBIC ACID 500 MG TAB PO SCH ×2 (08:36→17:30)
[2018-02-23] MEDS: CLOPIDOGREL BISULFATE 75 MG TAB PO SCH (08:36)
[2018-02-23] MEDS: ZINC SULFATE 220 MG CAP PO SCH (08:36)
[2018-02-23] MEDS: METOPROLOL SUCCINATE 50 MG TAB XL PO SCH (08:36)
[2018-02-23] MEDS: LISINOPRIL 2.5 MG TAB PO SCH (09:00)
[2018-02-23] MEDS: SIMVASTATIN 20 MG TAB PO SCH (21:38)
[2018-02-23] MEDS: ROPINIROLE HCL 2 MG TAB PO SCH (21:38)
[2018-02-24] MEDS: HYDROMORPHONE 2MG/ML 2 MG/ML ML IV PRN ×4 (02:12→20:19)
[2018-02-24 04:50] LABS: BASOPHILS % 0.4 % (0.0-1.0); EOSINOPHILS # (AUTO) 0.4 (0.0-0.4); EOSINOPHILS % 4.5 % (0.0-6.0); HEMATOCRIT 41.5 % (38.2-49.6); HEMOGLOBIN 13.4 g/dL (14.0-18.0); LYMPHOCYTES # (AUTO) 2.4 (1.0-3.2); LYMPHOCYTES % 25.5 % (18.0-39.1); MEAN CORPUSCULAR HEMOGLOBIN 28.2 pg (28-32); MEAN CORPUSCULAR HGB CONC 32.3 g/dL (31-35); MEAN CORPUSCULAR VOLUME 87.2 fL (81-99); MONOCYTES # (AUTO) 0.9 (0.2-0.8); MONOCYTES % 9.4 % (4.4-11.3); NEUTROPHILS # (AUTO) 5.6 (2.1-6.9); NEUTROPHILS % 59.9 % (38.7-80.0); PLATELET COUNT 254 x10e3/uL (140-360); RED BLOOD COUNT 4.76 x10e6/uL (4.3-5.7); RED CELL DISTRIBUTION WIDTH 14.3 % (11.7-14.4)
[2018-02-24 05:07] LABS: ANION GAP 13.5 mmol/L (8-16); BLOOD UREA NITROGEN 11 mg/dL (7-26); BUN/CREATININE RATIO 11 (6-25); CALCIUM 9.7 mg/dL (8.4-10.2); CARBON DIOXIDE 28 mmol/L (22-29); CHLORIDE 105 mmol/L (98-107); CREATININE, SERUM 1.03 mg/dL (0.72-1.25); EST GLOMERULAR FILTRATION RATE > 60 ML/MIN (60-); GLUCOSE 114 mg/dL (74-118); MAGNESIUM 2.3 MG/DL (1.3-2.1); POTASSIUM 4.5 mmol/L (3.5-5.1); SODIUM 142 mmol/L (136-145)
[2018-02-24 05:10] VITALS: BP 134/64
[2018-02-24] MEDS: CEFAZOLIN SOD 1 GM/D5W 50ML 50 ML IV SCH ×3 (05:31→20:18)
[2018-02-24] MEDS: PIPER-TAZ 3.375 GM 50 ML IV SCH ×3 (06:02→21:34)
[2018-02-24] MEDS: FAMOTIDINE 20 MG TAB PO SCH ×2 (07:30→18:35)
[2018-02-24] MEDS: INSULIN LISPRO 100 UNIT/1 ML 3ML VIAL SQ SCH ×4 (07:30→21:15)
[2018-02-24] MEDS ORDERED: HYDROMORPHONE 1MG/1ML INJ IV PRN (07:45)
[2018-02-24] MEDS: MULTIVITAMINS/MINERALS TAB PO SCH (07:57)
[2018-02-24] MEDS: GABAPENTIN 300 MG CAP PO SCH ×3 (07:58→20:18)
[2018-02-24] MEDS: OYST-CAL-D 500MG TABLET PO SCH ×2 (07:58→18:33)
[2018-02-24] MEDS: ASCORBIC ACID 500 MG TAB PO SCH ×2 (07:58→18:33)
[2018-02-24 08:41] VITALS: BP 111/74
[2018-02-24] MEDS: METOPROLOL SUCCINATE 50 MG TAB XL PO SCH (09:00)
[2018-02-24] MEDS: CLOPIDOGREL BISULFATE 75 MG TAB PO SCH (09:00)
[2018-02-24] MEDS ORDERED: LIDOCAINE HCL 1% LOCAL INJ 20 ML VIAL ONE (09:56)
[2018-02-24] MEDS ORDERED: SODIUM CHLORIDE 0.9% 250ML 0 ML ONE (10:18)
[2018-02-24] MEDS ORDERED: SODIUM CHLORIDE 0.9% 500ML 500 ML ONE (10:19)
[2018-02-24 10:50] VITALS: BP 111/74
[2018-02-24] MEDS ORDERED: IOPAMIDOL 300MG/ML 100 ML INFUS..BTL IV ONE (12:04)
[2018-02-24] MEDS ORDERED: LIDOCAINE HCL 2% LOCAL 20 ML VIAL ONE (12:04)
[2018-02-24] MEDS ORDERED: MIDAZOLAM HCL 2 MG/2 ML VIAL ONE (12:04)
[2018-02-24] MEDS ORDERED: FENTANYL CITRATE/PF 100MCG/2 ML INJ ONE (12:04)
[2018-02-24] MEDS ORDERED: HEPARIN SOD/SOD CHLORIDE 2,000 ML ONE (12:04)
[2018-02-24] MEDS ORDERED: SODIUM CHLORIDE 0.9% 1000ML 1,000 ML ONE (12:05)
[2018-02-24 12:19] VITALS: BP 116/65
--- NOTE | 2018-02-24 16:59 | Progress Note ---
DATE: February 24, 2018 CARDIOLOGY PROGRESS NOTE SUBJECTIVE: Patient reports right lower extremity resting pain. No chest pain or shortness of breath. OBJECTIVE VITAL SIGNS: Temperature 96.8, heart rate 63, respirations 18, oxygen saturation 97% on room air, blood pressure 116/65. GENERAL: Chronically ill-appearing man in no apparent distress. CARDIOVASCULAR: Regular rate and rhythm. LUNGS: Clear to auscultation. ABDOMEN: Soft and nontender. EXTREMITIES: Right foot wound. All laboratory data reviewed. CARDIOVASCULAR MEDICATIONS: Reviewed. 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 There is patency of the graft with 3-vessel runoff. IMPRESSION 1. Peripheral arterial disease. 2. Stenosis of the common femoral artery. 3. Right lower extremity wound with osteomyelitis. 4. Diabetes mellitus. 5. Hyperlipidemia. 6. Hypertension. RECOMMENDATIONS: Would recommend surgical vascular consultation. A simple cut down with an excision of the aneurysm and a patch angioplasty of the common femoral artery would be recommended at this point in time. The patient has a patent bypass graft with a 3-vessel runoff. Continue all other current cardiovascular medications. If okay with podiatry, would recommend reinitiation of aspirin and clopidogrel. Job#: [id number] MONICA
[2018-02-24 17:08] VITALS: BP 117/55
--- NOTE | 2018-02-24 17:13 | Operative Report ---
DATE OF PROCEDURE: PROCEDURES PERFORMED 1. Conscious sedation 35 minutes. 2. Abdominal aortography with bilateral iliofemoral runoff. 3. First-order peripheral angiography. 4. Third-order peripheral angiography. PREPROCEDURE DIAGNOSIS: Nonhealing wound with osteomyelitis. POSTPROCEDURE DIAGNOSIS: Peripheral arterial disease with aneurysmal dilatation of the anastomotic lesion of the common femoral artery with a severe stenosis in the common femoral artery. PROCEDURE DETAILS: After informed consent was obtained, the patient was brought to the cardiac catheterization laboratory in a fasting and nonsedated state. Bilateral groins were prepped and draped in the usual sterile fashion. Lidocaine 2% was infiltrated over the left anterior groin for local anesthesia. Using a micropuncture needle, the left common femoral artery was accessed using modified Seldinger technique and a 5-Uzbek sheath was placed. Next, diagnostic abdominal aortography was performed with an Omni Flush catheter. Next, this was used to cross up and over into the third-order peripheral angiography position, and digital subtraction angiography images were performed. This catheter was subsequently removed, and first-order peripheral angiography of the left lower extremity was performed. This site was closed with a Mynx device with excellent hemostasis. The patient tolerated the procedure well with no immediate complications and was transported back to his room in stable condition. PROCEDURAL FINDINGS 1. The infrarenal abdominal aorta is free of aneurysm or dissection. 2. The bilateral iliac system is patent with mild diffuse disease. 3. The right common femoral artery has a severe 80% stenosis. The superficial femoral artery is occluded. The femoral-popliteal graft is patent with 3-vessel runoff of the right lower extremity. There is an aneurysm at the anastomosis of the femoral-popliteal graft just distal to the common femoral artery stenosis. 4. There is an 80% to 70% stenosis in the left superficial femoral artery. There is an 80% stenosis of the left posterior tibial artery. The anterior tibial and peroneal arteries on the left are patent. IMPRESSION/RECOMMENDATIONS: This is a 53-year-old gentleman who was found to have a nonhealing wound with osteomyelitis. Would recommend surgical consultation for revascularization of the common femoral artery stenosis with removal of the aneurysm. Job#: [id number] EV
[2018-02-24] MEDS: ZINC SULFATE 220 MG CAP PO SCH (18:31)
[2018-02-24] MEDS: HYDROCODONE/APAP 5MG-325MG TAB PO PRN (18:31)
[2018-02-24] MEDS: LISINOPRIL 2.5 MG TAB PO SCH (18:33)
[2018-02-24 20:00] VITALS: BP 125/64
[2018-02-24] MEDS: SIMVASTATIN 20 MG TAB PO SCH (20:18)
[2018-02-24] MEDS: ROPINIROLE HCL 2 MG TAB PO SCH (20:18)
[2018-02-25] VITALS: BP 125/64
[2018-02-25] MEDS: HYDROMORPHONE 2MG/ML 2 MG/ML ML IV PRN ×4 (02:30→21:23)
[2018-02-25 04:00] VITALS: BP 114/62
[2018-02-25 04:34] LABS: BASOPHILS % 0.4 % (0.0-1.0); EOSINOPHILS # (AUTO) 0.3 (0.0-0.4); EOSINOPHILS % 4.1 % (0.0-6.0); HEMATOCRIT 39.1 % (38.2-49.6); HEMOGLOBIN 12.8 g/dL (14.0-18.0); LYMPHOCYTES # (AUTO) 2.4 (1.0-3.2); MEAN CORPUSCULAR HEMOGLOBIN 28.5 pg (28-32); MEAN CORPUSCULAR HGB CONC 32.7 g/dL (31-35); MEAN CORPUSCULAR VOLUME 87.1 fL (81-99); MONOCYTES # (AUTO) 0.9 (0.2-0.8); MONOCYTES % 11.1 % (4.4-11.3); NEUTROPHILS # (AUTO) 4.7 (2.1-6.9); PLATELET COUNT 221 x10e3/uL (140-360); RED BLOOD COUNT 4.49 x10e6/uL (4.3-5.7); RED CELL DISTRIBUTION WIDTH 14.2 % (11.7-14.4)
[2018-02-25 04:49] LABS: ANION GAP 11.3 mmol/L (8-16); BLOOD UREA NITROGEN 11 mg/dL (7-26); BUN/CREATININE RATIO 10 (6-25); CALCIUM 9.4 mg/dL (8.4-10.2); CARBON DIOXIDE 29 mmol/L (22-29); CHLORIDE 106 mmol/L (98-107); CREATININE, SERUM 1.07 mg/dL (0.72-1.25); EST GLOMERULAR FILTRATION RATE > 60 ML/MIN (60-); GLUCOSE 183 mg/dL (74-118); POTASSIUM 4.3 mmol/L (3.5-5.1); SODIUM 142 mmol/L (136-145)
[2018-02-25] MEDS: CEFAZOLIN SOD 1 GM/D5W 50ML 50 ML IV SCH ×3 (05:14→21:24)
[2018-02-25] MEDS: PIPER-TAZ 3.375 GM 50 ML IV SCH ×3 (05:47→21:46)
[2018-02-25] MEDS ORDERED: TRAMADOL HCL 50 MG TAB PO PRN (06:00)
[2018-02-25] MEDS ORDERED: ZOLPIDEM TARTRATE 5 MG TAB PO PRN (06:15)
[2018-02-25] MEDS: INSULIN LISPRO 100 UNIT/1 ML 3ML VIAL SQ SCH ×4 (07:30→21:15)
[2018-02-25 08:40] VITALS: BP 126/69
[2018-02-25] MEDS: OYST-CAL-D 500MG TABLET PO SCH ×2 (09:00→17:11)
[2018-02-25] MEDS: ASCORBIC ACID 500 MG TAB PO SCH ×2 (09:00→17:11)
[2018-02-25] MEDS: CLOPIDOGREL BISULFATE 75 MG TAB PO SCH (09:00)
[2018-02-25] MEDS: GABAPENTIN 300 MG CAP PO SCH ×3 (09:00→20:38)
--- NOTE | 2018-02-25 09:12 | Progress Note ---
DATE: February 25, 2018 SUBJECTIVE: This is a 53-year-old male with past medical history of type-2 diabetes, peripheral neuropathy, and hypertension who was admitted for worsening infection to his right foot. He currently denies nausea, vomiting, fever, chills, chest pain or shortness of breath. No acute issues overnight. He continues to relate to moderate pain to the right foot. OBJECTIVE: Vital signs today: Temperature 97.4, heart rate 62, respiratory rate 20, blood pressure 114/62, pulse ox 95% on room air. PROBLEM - FOCUSED LOWER EXTREMITY PHYSICAL EXAMINATION VASCULAR: Dorsalis pedis pulse faintly palpable. Posterior tibial pulses are nonpalpable. Capillary refill time is approximately 4 to 5 seconds to the distal stump. Periwound erythema and edema have significantly improved since admission. NEUROLOGICAL: Sensation is absent to light touch bilateral. Right transmetatarsal amputation and left 4th digit amputation. DERMATOLOGICAL: Chronic ulceration to the plantar aspect of the patient's right foot approximately 5 cm x 6 cm x 0.3 cm. Wound edges are dry. There is hyperkeratotic tissue noted to the distal amputation site. Wound is improved. Less drainage. Periwound erythema has significantly improved. LABS: White blood cell count is 8.3, hemoglobin 4.4, hematocrit 39.1, platelet count 221. Neutrophil percentage is 56. Sodium 142, potassium 4.3, chloride 106, CO2 29, BUN 11.3, creatinine 1.07, glucose 183. IMAGING: MRI reveals osteomyelitis in the distal stump site, questionable osteomyelitis to the bones of the foot proximal to the tarsometatarsal joint. ASSESSMENT 1. Type-2 diabetes with peripheral neuropathy. 2. Right foot ulceration with cellulitis. 3. Osteomyelitis, right foot. 4. Peripheral vascular disease. PLAN: Patient was seen and evaluated. Explained condition, MRI and vascular findings to the patient in detail. Patient underwent a peripheral angiogram per Dr. Torres yesterday, and there was noted to be an aneurysm to the right femoral artery. He was recommending a vascular consultation. I discussed with the patient and the patient's family, and the patient is not amenable to a [id number] amputation at this point. So, our plan will be for long-term IV antibiotics and local wound care to the right lower extremity. Discussed with patient that prognosis is guarded due to longstanding history of the wound, multiple bones of the foot with osteomyelitis and peripheral vascular disease. Patient still may require a [id number]-bwz-[id number] amputation in the near future. Patient will be taken to the OR tomorrow morning, 02/26/2018, for an aggressive wound debridement and drainage procedure. Patient will be placed n.p.o. after midnight. Podiatry service will continue to monitor as an inpatient. Job#: [id number]
[2018-02-25] MEDS ORDERED: LIDOCAINE HCL 1% LOCAL INJ 20 ML VIAL ONE (10:00)
[2018-02-25] MEDS ORDERED: MIDAZOLAM HCL 2 MG/2 ML VIAL ONE (10:14)
[2018-02-25] MEDS ORDERED: FENTANYL CITRATE/PF 100MCG/2 ML INJ ONE (10:14)
[2018-02-25] MEDS ORDERED: HEPARIN SOD (PORCINE) 1000 UNIT/ML 30ML ONE (10:18)
[2018-02-25] MEDS: LISINOPRIL 2.5 MG TAB PO SCH (13:33)
[2018-02-25] MEDS: MULTIVITAMINS/MINERALS TAB PO SCH (13:33)
[2018-02-25] MEDS: METOPROLOL SUCCINATE 50 MG TAB XL PO SCH (13:34)
[2018-02-25] MEDS: ZINC SULFATE 220 MG CAP PO SCH (13:34)
[2018-02-25] MEDS: FAMOTIDINE 20 MG TAB PO SCH ×2 (13:38→17:11)
[2018-02-25] MEDS: HYDROCODONE/APAP 5MG-325MG TAB PO PRN ×2 (13:38→20:38)
--- NOTE | 2018-02-25 14:06 | Diagnostic Imaging Report ---
ADDENDUM #1 Addendum: Number of radiographs: 2 Signed by: Dr. Idalia John MD on 03/26/2018 5:12 PM ORIGINAL REPORT PROCEDURE: PLACEMENT OF RIGHT IJ TUNNELED SMALL BORE CATHETER WITH FLUOROSCOPIC GUIDANCE INDICATION: Requiring correction IV access. OPERATORS: Idalia Jonh MD RADIATION EXPOSURE: Fluoroscopy Time: 0.4 min, Cumulative dose: 3.8 mGy CONSENT: The patient was informed of the nature of the proposed procedure. The purposes, alternatives, risks, and benefits were explained and discussed. All questions were answered and written consent was obtained. ANESTHESIA: Intravenous conscious sedation was administered by radiology nursing. Continuous hemodynamic and respiratory monitoring was performed, including the use of pulse oximetry. MEDICATIONS: Fentanyl and versed per nursing administration records 15 cc of 1% subcutaneous lidocaine TECHNIQUE: The patient was brought to the angiography suite, and the right neck and upper chest were prepped and draped in standard sterile fashion. All elements of maximal sterile barrier technique were followed including cap and mask, sterile gown, sterile gloves, large sterile sheet, hand hygiene and 2% chlorhexidine for cutaneous antisepsis. Pre-procedure time-out confirmed the patient identity and the procedure to be performed. Using standard sterile technique, 1 % lidocaine was administered subcutaneously for local anesthesia. Ultrasound demonstrated that the right internal jugular was patent and compressible. Under continuous sonographic guidance, the right internal jugular vein was accessed using a 21 G micropuncture needle. An .018'' microwire was placed to secure access and confirming venous access by advancement into the IVC. A needle was exchanged for the peel away sheath. Appropriate measurements were made using the microwire. Attention was then turned towards the subcutaneous tunnel. After administration of 1% lidocaine subcutaneously for local anesthesia, a 6 Fr x 23 cm double lumen tunneled small bore catheter was tunneled in an antegrade direction from skin exit site to venotomy site. The catheter was cut to length. The catheter was then advanced through the peel-away sheath into the superior vena cava. After confirming appropriate position with fluoroscopy the catheter tip at the cavoatrial junction, the peel-away sheath was removed, and the lumen was aspirated, check flushed, and terminally flushed with heparin solution. The catheter was secured using 3-0 Ethilon pursestring suture at the catheter exit site and also 3-0 Ethilon sutures at the catheter hub. The venotomy site was closed with steri-strips. Sterile dressings were applied. The patient tolerated the procedure well without immediate complication and was transported back to the floor in stable condition. FINDINGS: 1. Patent and compressible right IJV accessed with continuous ultrasound guidance. 2. Placement of 6 Fr x 23 cm double lumen tunneled right IJV small bore catheter. 3. Post-procedure intraprocedural chest radiograph showed catheter tip at the cavoatrial junction, no kinks along course of catheter, and no pneumothorax. Catheter is ready for use. IMPRESSION: Placement of right IJ tunneled double lumen small bore catheter. Catheter is ready for immediate use. Signed by: Dr. Idalia John MD on 02/25/2018 2:03 PM
[2018-02-25 17:19] VITALS: BP 109/55
[2018-02-25 20:00] VITALS: BP 144/70
[2018-02-25] MEDS: ROPINIROLE HCL 2 MG TAB PO SCH (20:38)
[2018-02-25] MEDS: SIMVASTATIN 20 MG TAB PO SCH (20:38)
[2018-02-26] VITALS: BP 118/56
[2018-02-26] MEDS: HYDROMORPHONE 2MG/ML 2 MG/ML ML IV PRN (04:15)
[2018-02-26] MEDS: CEFAZOLIN SOD 1 GM/D5W 50ML 50 ML IV SCH ×2 (06:00→09:05)
[2018-02-26] MEDS: PIPER-TAZ 3.375 GM 50 ML IV SCH (06:05)
[2018-02-26] MEDS ORDERED: Multivitamins/Minerals PO (06:11)
[2018-02-26] MEDS ORDERED: ZINC SULFATE220 M1 PO (06:11)
[2018-02-26] MEDS ORDERED: TYLENOL # 31 EA PO (06:11)
[2018-02-26] MEDS ORDERED: ASCORBIC ACID500 MG PO (06:11)
[2018-02-26] MEDS ORDERED: Calcium Carbonate PO (06:11)
[2018-02-26] MEDS ORDERED: HYDROMORPHONE HCL 2 MG TAB PO PRN (06:15)
[2018-02-26] MEDS ORDERED: HYDROMORPHONE 1MG/1ML INJ IV PRN (06:15)
[2018-02-26 06:20] LABS: BASOPHILS # (AUTO) 0.1 (0.0-0.1); BASOPHILS % 0.5 % (0.0-1.0); EOSINOPHILS # (AUTO) 0.4 (0.0-0.4); EOSINOPHILS % 4.1 % (0.0-6.0); HEMATOCRIT 40.5 % (38.2-49.6); HEMOGLOBIN 13.3 g/dL (14.0-18.0); LYMPHOCYTES # (AUTO) 2.7 (1.0-3.2); LYMPHOCYTES % 28.1 % (18.0-39.1); MEAN CORPUSCULAR HEMOGLOBIN 28.7 pg (28-32); MEAN CORPUSCULAR HGB CONC 32.8 g/dL (31-35); MEAN CORPUSCULAR VOLUME 87.3 fL (81-99); MONOCYTES % 10.2 % (4.4-11.3); NEUTROPHILS # (AUTO) 5.4 (2.1-6.9); NEUTROPHILS % 56.7 % (38.7-80.0); PLATELET COUNT 234 x10e3/uL (140-360); RED BLOOD COUNT 4.64 x10e6/uL (4.3-5.7); RED CELL DISTRIBUTION WIDTH 14.2 % (11.7-14.4)
[2018-02-26] MEDS ORDERED: BACITRACIN 50,000 UNIT VIAL ONE (06:34)
[2018-02-26 06:44] LABS: INR 0.91; PROTHROMBIN TIME 13.1 seconds (11.9-14.5)
[2018-02-26 06:45] LABS: PARTIAL THROMBOPLASTIN TIME 31.6 seconds (23.8-35.5)
[2018-02-26] MEDS ORDERED: HYDROMORPHONE 2MG/ML 2 MG/ML ML IV PRN (06:45)
[2018-02-26] MEDS ORDERED: HYDROMORPHONE 2MG/ML 2 MG/ML ML IV ONE (06:45)
[2018-02-26 06:56] LABS: ANION GAP 11.7 mmol/L (8-16); BLOOD UREA NITROGEN 13 mg/dL (7-26); BUN/CREATININE RATIO 14 (6-25); CALCIUM 9.5 mg/dL (8.4-10.2); CARBON DIOXIDE 27 mmol/L (22-29); CHLORIDE 107 mmol/L (98-107); CREATININE, SERUM 0.94 mg/dL (0.72-1.25); EST GLOMERULAR FILTRATION RATE > 60 ML/MIN (60-); GLUCOSE 185 mg/dL (74-118); MAGNESIUM 1.9 MG/DL (1.3-2.1); POTASSIUM 3.7 mmol/L (3.5-5.1); SODIUM 142 mmol/L (136-145)
[2018-02-26] MEDS ORDERED: BUPIVACAINE HCL 0.5% INJ 30 ML VIAL INJ ONE (07:28)
[2018-02-26] MEDS: INSULIN LISPRO 100 UNIT/1 ML 3ML VIAL SQ SCH ×2 (07:30→12:12)
[2018-02-26] MEDS: FAMOTIDINE 20 MG TAB PO SCH (07:30)
--- NOTE | 2018-02-26 08:18 | Operative Report ---
DATE OF PROCEDURE: February 26, 2018 PREOPERATIVE DIAGNOSES 1. Right foot wound. 2. Cellulitis. 3. Osteomyelitis. PLANNED PROCEDURES 1. Right foot Excisional sharp subcutaneous debridement. 2. Irrrigation. FOUNDRY SUPERINTENDANT: None. ANESTHESIA: General with a postoperative block consisting of 10 mL of 0.5% Marcaine plain. HEMOSTASIS: Esmarch tourniquet applied for approximately 15 minutes. MATERIALS: None. PATHOLOGY: Anaerobic and aerobic cultures. Soft tissue sent for biopsy, right forefoot. PROCEDURE IN DETAIL: The patient was seen in the preoperative waiting room where the correct procedure and site were identified. The patient was brought to the operating room and placed on the operating table in the supine position. General anesthesia was initiated at this time. The right foot, ankle and leg were scrubbed, prepped and draped in the usual aseptic manner. An Esmarch tourniquet was applied to the patient's right ankle. Utilizing a #10 blade, a significant amount of hyperkeratotic tissue to the medial, distal and lateral aspects of the previous amputation site was debrided down to healthy epithelium. Part of the soft tissue was sent for biopsy. There was a large plantar lateral ulceration noted to the forefoot which has a chronic-appearing granulation tissue, which was debrided down to healthy, bleeding, granulation tissue utilizing a #15 blade and a curette. At this point, anaerobic and aerobic deep wound cultures were noted. There was noted to be a tunneling on the proximal lateral aspect of the ulceration, which was debrided and opened. Utilizing the pulse lavage, the wound was copiously irrigated with sterile saline mixed with bacitracin. Betadine wet-to-dry dressing was applied to the patient's right foot. The patient tolerated the procedure and anesthesia well. Patient was transferred to the postoperative recovery room with vital signs stable and vascular status intact. The patient was monitored there for a short period of time before being readmitted to the floor for postoperative monitoring, pain control and IV antibiotics. The patient has peripheral vascular disease, type-2 diabetes, peripheral neuropathy and a chronic ulceration to his right foot. Initial recommendation was for a [id number] amputation but the patient and the family were not amenable to this at this time. Patient underwent aggressive wound debridement. He has his PICC line in for IV antibiotics. Will attempt local wound care in an attempt for limb salvage. At this point, the patient and family are aware that the prognosis is guarded. Job#: [id number] ILANA DOE
[2018-02-26] MEDS: OYST-CAL-D 500MG TABLET PO SCH (09:04)
[2018-02-26] MEDS: MULTIVITAMINS/MINERALS TAB PO SCH (09:04)
[2018-02-26] MEDS: CLOPIDOGREL BISULFATE 75 MG TAB PO SCH (09:04)
[2018-02-26] MEDS: GABAPENTIN 300 MG CAP PO SCH (09:04)
[2018-02-26] MEDS: ZINC SULFATE 220 MG CAP PO SCH (09:05)
[2018-02-26] MEDS: ASCORBIC ACID 500 MG TAB PO SCH (09:05)
[2018-02-26] MEDS: LISINOPRIL 2.5 MG TAB PO SCH (09:08)
[2018-02-26] MEDS: METOPROLOL SUCCINATE 50 MG TAB XL PO SCH (09:09)
[2018-02-26 10:00] VITALS: BP 139/76
[2018-02-26 11:40] VITALS: BP 135/64
[2018-02-26] MEDS ORDERED: PROPOFOL IV EMULSION 10 MG/ML 20 ML VIAL IV ONE (13:19)
[2018-02-26] MEDS ORDERED: LIDOCAINE HCL 2% LOCAL INJ 5 ML SDV VIAL INJ ONE (13:19)
[2018-02-26] MEDS ORDERED: SEVOFLURANE INHAL SOLN 250 ML PEN BTL INH ONE (13:19)
[2018-02-26] MEDS ORDERED: KETOROLAC TROMETHAMINE 30 MG/ML VIAL IV ONE (13:19)
[2018-02-26] MEDS ORDERED: ONDANSETRON HCL INJ 2 MG/ML VIAL IV ONE (13:19)
--- NOTE | 2018-02-26 18:08 | Discharge Summary ---
ADMISSION DIAGNOSES 1. Right foot osteomyelitis with peripheral artery disease and stent. 2. Type 2 diabetes. 3. Hypertension. 4. Hyperlipidemia. 5. Neuropathy. 6. Hyponatremia. DISCHARGE DIAGNOSES 1. Right foot osteomyelitis with peripheral artery disease and stent. 2. Type 2 diabetes. 3. Hypertension. 4. Hyperlipidemia. 5. Neuropathy. 6. Hyponatremia. HISTORY: Patient has a history of type 2 diabetes, hypertension, hyperlipidemia, neuropathy. SURGICAL HISTORY: Right TMA, left 4th toe amputation, L4-L5 surgery. FAMILY HISTORY: Patient's mom and dad have diabetes. Patient's mom had a stroke. SOCIAL HISTORY: Patient admits to occasional alcohol use and smoking 1 pack of cigarettes a day x20 years. HOSPITAL COURSE: A 53-year-old male complains of chronic right foot wound status post TMA in 2014. There has been a clear red drainage and a smell. He came to the ER because the right foot continues to get worse. Pain is worse with walking and hanging foot off the bed. Pain is improved with IV medicine. On admission, patient was started on vancomycin and Zosyn. ID and podiatry were consulted. Physical therapy eval was done and a bilateral lower extremity arterial Doppler was done. The prelim on arterial Doppler showed evidence of arterial disease without significant stenosis on the right and significant stenosis on the left lower extremity. X-ray showed demineralization of the proximal 4th and 5th metatarsals at the ostomy site. This is concerning for osteomyelitis. Patient then had an MRI of the foot per podiatry. Findings worrisome for osteomyelitis involving the remainder of the 2nd through 5th metatarsal bones. Wound culture came back positive for Proteus vulgaris, Staphylococcus aureus, and streptococcus group B. Blood cultures were negative. Per ID, patient will need 4 to 6 weeks of IV antibiotics. Per podiatry, they would recommend a BKA, but the patient is not willing to do that. He wants to try IV antibiotics instead. Cardiology was also consulted due to the arterial Doppler findings. Patient had an angio which showed infrarenal abdominal aorta is free of aneurysm or dissection. Bilateral iliac system is patent with diffuse disease. Right common femoral artery has a severe 80% stenosis. The superficial femoral artery is occluded. The femoral popliteal graft is patent with 3-vessel runoff of the right lower extremity. There is an aneurysm at the anastomosis of the femoral popliteal graft just distal to the common femoral artery stenosis. There is an 80% to 70% stenosis in the left superficial femoral artery, 80% stenosis of the left posterior tibial artery. Per cardio, they would recommend a surgical consult. Per cardiology, he can follow up outpatient for this. Patient will discharge home with 4 weeks of Invanz per ID. He will follow up with cardiology outpatient as well as infectious disease and podiatry. Patient had a debridement on the day of discharge per podiatry. Patient was given wound care instructions at time of discharge. He had a central line placed for his 4 weeks of antibiotics. Patient will follow up with primary care in 1 to 2 weeks as well. Vital signs stable. Patient afebrile. Patient understands discharge instructions and agrees to plan. Dictated by: Tejal Hernandez NP EVONNE LUCIA MD Job#: [id number] TA
[2018-02-26] MEDS ORDERED: MIDAZOLAM HCL 2 MG/2 ML VIAL ONE (19:27)
[2018-02-26] MEDS ORDERED: FENTANYL CITRATE/PF 100MCG/2 ML INJ ONE (19:27)
== END 2018-02-26 13:20 | disposition home health service (06) | DRG 623 ==
LOC: ER 14:55 → ERHOLD 19:42 → IMCU 23:42 → OBSVTOIN 02-20 07:18 → MED/SURG2 02-20 13:07
PROVIDERS: ADMIT Internal Medicine; ATTEND Internal Medicine
PROC: 02HV33Z Insertion of Infusion Device into Superior Vena Cava, Percutaneous Approach (ICD-10-PCS; 2018-02-20)
PROC: B548ZZA Ultrasonography of Superior Vena Cava, Guidance (ICD-10-PCS; 2018-02-20)
PROC: B40D1ZZ Plain Radiography of Aorta and Bilateral Lower Extremity Arteries using Low Osmolar Contrast (ICD-10-PCS; 2018-02-24)
PROC: B548ZZA Ultrasonography of Superior Vena Cava, Guidance (ICD-10-PCS; 2018-02-25)
PROC: 0JH63XZ Insertion of Tunneled Vascular Access Device into Chest Subcutaneous Tissue and Fascia, Percutaneous Approach (ICD-10-PCS; 2018-02-25)
PROC: 02HV33Z Insertion of Infusion Device into Superior Vena Cava, Percutaneous Approach (ICD-10-PCS; 2018-02-25)
PROC: B5181ZA Fluoroscopy of Superior Vena Cava using Low Osmolar Contrast, Guidance (ICD-10-PCS; 2018-02-25)
PROC: 0JBQ0ZZ Excision of Right Foot Subcutaneous Tissue and Fascia, Open Approach (ICD-10-PCS; principal; 2018-02-26 07:14)
DX: E11.69 Type 2 diabetes mellitus with other specified complication (principal); M86.171 Other acute osteomyelitis, right ankle and foot; L03.115 Cellulitis of right lower limb; L97.419 Non-pressure chronic ulcer of right heel and midfoot with unspecified severity; T82.898A Other specified complication of vascular prosthetic devices, implants and grafts, initial encounter; T82.858A Stenosis of other vascular prosthetic devices, implants and grafts, initial encounter; I10 Essential (primary) hypertension; E78.5 Hyperlipidemia, unspecified; H54.61 Unqualified visual loss, right eye, normal vision left eye; Z89.431 Acquired absence of right foot; Z88.5 Allergy status to narcotic agent; Z83.3 Family history of diabetes mellitus; Z82.49 Family history of ischemic heart disease and other diseases of the circulatory system; E11.42 Type 2 diabetes mellitus with diabetic polyneuropathy; E11.621 Type 2 diabetes mellitus with foot ulcer; I70.203 Unspecified atherosclerosis of native arteries of extremities, bilateral legs; E83.41 Hypermagnesemia; R53.81 Other malaise; B95.62 Methicillin resistant Staphylococcus aureus infection as the cause of diseases classified elsewhere; B95.0 Streptococcus, group A, as the cause of diseases classified elsewhere; B96.4 Proteus (mirabilis) (morganii) as the cause of diseases classified elsewhere; B96.89 Other specified bacterial agents as the cause of diseases classified elsewhere; F17.210 Nicotine dependence, cigarettes, uncomplicated; Z79.84 Long term (current) use of oral hypoglycemic drugs
CPT/HCPCS: 36246; 36415; 36558; 74470; 75716; 76937; 77001; 80048; 80053; 80202; 82948; 83036; 83605; 83735; 85025; 85610; 85651; 85730; 86140; 87040; 87071; 87075; 87186; 87205; 88304; 88305; 88311; 93925; 99152; 99153; 99284; C1769; G0378; J0690; J1644; J1885; J2001; J2250; J2405; J2543; J3370; J7030; J7040; J7050; Q9967

== ENCOUNTER 2024-03-05 23:33 | Inpatient (IN) | payer BC, MEDICARE ==
[~2024-03-05] VITALS: Ht 193 cm; Wt 84.4 kg
[~2024-03-05 23:33] MED LIST changes: +ASCORBIC ACID500 MG PO; +Calcium Carbonate PO; +GABAPENTIN300 MG PO; +GLIMEPIRIDE2 MG PO; +METFORMIN HCL850 MG PO; +Multivitamins/Minerals PO; +PRAVASTATIN SOD40 MG PO; +ROPINIROLE HCL2 MG PO; +TYLENOL # 31 EA PO; +ZINC SULFATE220 M1 PO
[2024-03-06] VITALS (7 sets, daily range): BP systolic 103–143; BP diastolic 66–80; PULSE 62–78; RESP 16–20; TEMP 97.2–98.5; O2SAT 99–100
[2024-03-06] MEDS ORDERED: ACETAMINOPHEN 325 MG TAB PO PRN (01:00)
[2024-03-06] MEDS ORDERED: Morphine 2mg Syringe 2 MG/ML SYR IV PRN (01:00)
[2024-03-06] MEDS ORDERED: ALBUTEROL/IPRATROPIUM 3 ML NEB NEB PRN (01:00)
[2024-03-06] MEDS ORDERED: DIPHENHYDRAMINE HCL 25 MG CAP PO PRN (01:00)
[2024-03-06] MEDS ORDERED: MELATONIN 5 MG TABLET PO PRN (01:00)
[2024-03-06] MEDS ORDERED: BENZONATATE 100 MG CAP PO PRN (01:00)
[2024-03-06] MEDS ORDERED: DOCUSATE SODIUM 100 MG CAP PO PRN (01:00)
[2024-03-06] MEDS ORDERED: ONDANSETRON HCL INJ 2MG/ML 2ML 2 MG/ML VIAL IV PRN (01:00)
[2024-03-06] MEDS ORDERED: POTASSIUM CHLORIDE 20 MEQ TAB CR PO PRN (01:00)
[2024-03-06] MEDS ORDERED: SIMETHICONE 80 MG CHEW PO PRN (01:00)
[2024-03-06] MEDS ORDERED: HYDRALAZINE HCL 20 MG/ML VIAL IV PRN (01:00)
[2024-03-06] MEDS ORDERED: LIDOCAINE 4% PATCH TP PRN (01:00)
[2024-03-06] MEDS ORDERED: DEXTROSE 50% SYRINGE 50 ML IV PRN ×2 (01:00→01:15)
[2024-03-06 02:29] LABS: BASOPHILS # (AUTO) 0.1 (0.0-0.1); BASOPHILS % 0.6 % (0.0-1.0); EOSINOPHILS # (AUTO) 0.2 (0.0-0.4); EOSINOPHILS % 1.9 % (0.0-6.0); HEMATOCRIT 42.9 % (38.2-49.6); HEMOGLOBIN 13.8 g/dL (14.0-18.0); LYMPHOCYTES # (AUTO) 2.7 (1.0-3.2); LYMPHOCYTES % 27.5 % (18.0-39.1); MEAN CORPUSCULAR HEMOGLOBIN 30.5 pg (28-32); MEAN CORPUSCULAR HGB CONC 32.2 g/dL (31-35); MEAN CORPUSCULAR VOLUME 94.7 fL (81-99); MONOCYTES # (AUTO) 0.8 (0.2-0.8); MONOCYTES % 8.1 % (4.4-11.3); NEUTROPHILS % 61.4 % (38.7-80.0); PLATELET COUNT 254 x10e3/uL (140-360); RED BLOOD COUNT 4.53 x10e6/uL (4.3-5.7); RED CELL DISTRIBUTION WIDTH 13.4 % (11.7-14.4); WHITE BLOOD COUNT 9.76 x10e3/uL (4.8-10.8)
[2024-03-06] MEDS: HYDROCODONE/APAP 5MG-325MG TAB PO PRN (02:38)
[2024-03-06] MEDS: MEROPENEM 1 GM in SODIUM CHLORIDE 0.9% 100 ML IV STA (02:38)
[2024-03-06 03:05] LABS: ALBUMIN 3.7 g/dL (3.5-5.0); ALBUMIN/GLOBULIN RATIO 1.1 (0.8-2.0); ANION GAP 16.5 mmol/L (8-16); BILIRUBIN,TOTAL 0.3 mg/dL (0.2-1.2); CALCIUM 9.5 mg/dL (8.4-10.2); CREATININE, SERUM 0.93 mg/dL (0.72-1.25); POTASSIUM 3.5 mmol/L (3.5-5.1); TOTAL PROTEIN 7.2 g/dL (6.5-8.1)
[2024-03-06] MEDS ORDERED: MEROPENEM 1 GM in SODIUM CHLORIDE 0.9% 100 ML IV SCH (06:00)
[2024-03-06 06:30] LABS: BASOPHILS # (AUTO) 0.1 (0.0-0.1); BASOPHILS % 0.5 % (0.0-1.0); EOSINOPHILS # (AUTO) 0.2 (0.0-0.4); EOSINOPHILS % 1.6 % (0.0-6.0); HEMATOCRIT 43.7 % (38.2-49.6); HEMOGLOBIN 14.3 g/dL (14.0-18.0); LYMPHOCYTES # (AUTO) 2.9 (1.0-3.2); LYMPHOCYTES % 31.7 % (18.0-39.1); MEAN CORPUSCULAR HEMOGLOBIN 30.6 pg (28-32); MEAN CORPUSCULAR HGB CONC 32.7 g/dL (31-35); MEAN CORPUSCULAR VOLUME 93.4 fL (81-99); MONOCYTES # (AUTO) 0.8 (0.2-0.8); MONOCYTES % 8.7 % (4.4-11.3); NEUTROPHILS # (AUTO) 5.3 (2.1-6.9); NEUTROPHILS % 57.1 % (38.7-80.0); PLATELET COUNT 241 x10e3/uL (140-360); RED BLOOD COUNT 4.68 x10e6/uL (4.3-5.7); RED CELL DISTRIBUTION WIDTH 13.5 % (11.7-14.4); WHITE BLOOD COUNT 9.22 x10e3/uL (4.8-10.8)
[2024-03-06 06:45] LABS: PROTHROMBIN TIME 13.8 seconds (11.9-14.5)
[2024-03-06] MEDS: MEROPENEM 1 GM in SODIUM CHLORIDE 0.9% 100 ML IV SCH (06:49)
[2024-03-06 06:53] LABS: ANION GAP 12.5 mmol/L (8-16); CALCIUM 9.1 mg/dL (8.4-10.2); CREATININE, SERUM 0.79 mg/dL (0.72-1.25); MAGNESIUM 1.8 MG/DL (1.3-2.1); POTASSIUM 3.5 mmol/L (3.5-5.1)
[2024-03-06] MEDS: PANTOPRAZOLE SOD 40 MG TABEC PO SCH (07:30)
[2024-03-06] MEDS: INSULIN LISPRO 100 UNIT/1 ML 3ML VIAL SQ SCH (08:47)
[2024-03-06] MEDS: GABAPENTIN 300 MG CAP PO SCH (12:05)
[2024-03-06] MEDS ORDERED: LORATADINE10 MG PO (14:09)
[2024-03-06] MEDS ORDERED: HYDROCODON-ACE1 EAC8 PO (14:09)
[2024-03-06] MEDS ORDERED: CILOSTAZOL50 MG PO (14:09)
[2024-03-06] MEDS ORDERED: ATORVASTATIN CA20 MG PO (14:09)
[2024-03-06] MEDS ORDERED: TRICOR48 MG PO (14:09)
[2024-03-06] MEDS ORDERED: JARDIANCE10 MG PO (14:09)
[2024-03-06] MEDS ORDERED: MOUNJARO5 MG/0.5 M SQ (14:09)
[2024-03-06] MEDS ORDERED: CIPRO500 MG PO (14:24)
[2024-03-06] MEDS ORDERED: CLINDAMYCIN HC150 MG PO (14:24)
[2024-03-06] MEDS ORDERED: ENOXAPARIN SOD INJ 40 MG/0.4 ML SYR SC SCH (17:00)
== END 2024-03-06 17:00 | disposition home or self-care (01) | DRG 638 ==
LOC: MED/SURG3 23:38
PROVIDERS: ADMIT Internal Medicine; ATTEND Internal Medicine
PROC: 02HV33Z Insertion of Infusion Device into Superior Vena Cava, Percutaneous Approach (ICD-10-PCS; principal; 2024-03-06)
DX: E11.69 Type 2 diabetes mellitus with other specified complication (principal); L97.516 Non-pressure chronic ulcer of other part of right foot with bone involvement without evidence of necrosis; M86.9 Osteomyelitis, unspecified; E11.621 Type 2 diabetes mellitus with foot ulcer; B96.5 Pseudomonas (aeruginosa) (mallei) (pseudomallei) as the cause of diseases classified elsewhere; E11.42 Type 2 diabetes mellitus with diabetic polyneuropathy; I10 Essential (primary) hypertension; E78.5 Hyperlipidemia, unspecified; Z95.1 Presence of aortocoronary bypass graft
CPT/HCPCS: 36415; 36569; 71045; 80048; 80053; 82550; 82948; 83036; 83735; 85025; 85610; 85651; 86140; 94799; 99252; J2185; J7050